=== PATIENT | female | born 2000 | race American Indian/Alaskan Native ===

== ENCOUNTER 2022-03-01 01:46 | Outpatient (CLI) | payer MEDICAID ==
[2022-03-01 03:52] LABS: Bilirubin,Urine NEG (Negative); Blood,Urine NEG (Negative); Color,Urine Yellow (Yellow); Protein,Urine <15 mg/dL mg/dL (Negative); Urobilinogen,Urine < 2.0 mg/dL (<2.0)
[2022-03-01 03:53] LABS: Bacteria,Urine 1+ /HPF (Negative); Mucus,Urine FEW /HPF; RBC,Urine < 1.0 /HPF (0.0-6.0)
[2022-03-01 04:07] VITALS: BP 124/60
[2022-03-01] MEDS ORDERED: LACTATED RINGERS 1,000 ML IV ONE (04:14)
== END 2022-03-01 05:30 | disposition home or self-care (01) ==
LOC: TRG 01:46 → APU 01:49 → TRG 05:30
PROVIDERS: ATTEND Obstetrics & Gynecology
DX: O26.893 Other specified pregnancy related conditions, third trimester (principal); R10.9 Unspecified abdominal pain; Z3A.30 30 weeks gestation of pregnancy
CPT/HCPCS: 59025; 81001; 96360; J7120

== ENCOUNTER 2022-04-28 12:29 | Inpatient (IN) | payer MEDICAID ==
[2022-04-28] MEDS ORDERED: AMPICILLIN/NS 2 GM/100 ML 2 GM/100 ML BAG IV ONE (12:56)
[2022-04-28] MEDS ORDERED: BUTORPHANOL 2 MG/1 ML INJ IV PRN ×2 (12:56)
[2022-04-28] MEDS ORDERED: CARBOPROST TROMETHAMINE 250 MCG/1 ML INJ IM PRN (12:56)
[2022-04-28] MEDS ORDERED: TERBUTALINE 1 MG/1 ML INJ SUB-Q PRN (12:56)
[2022-04-28] MEDS ORDERED: ACETAMINOPHEN 325 MG TAB PO PRN (12:56)
[2022-04-28] MEDS ORDERED: LIDOCAINE (2%) 20 MG/1 ML VIAL 20 ML MDV INFILTRATI ONE ×2 (12:56→18:16)
[2022-04-28] MEDS ORDERED: LOPERAMIDE 2 MG CAP PO PRN (12:56)
[2022-04-28] MEDS ORDERED: fentaNYL 100 MCG/2 ML INJ IV PRN (12:56)
[2022-04-28] MEDS ORDERED: OXYTOCIN 10 UNIT/1 ML INJ IM PRN (12:56)
[2022-04-28] MEDS ORDERED: METHYLERGONOVINE MALEATE 0.2 MG/ML VIAL IM PRN (12:56)
[2022-04-28] MEDS ORDERED: miSOPROStol 200 MCG TAB PR PRN (12:56)
[2022-04-28] MEDS ORDERED: ePHEDrine SULFATE 50 MG/1 ML INJ IV PRN (12:56)
[2022-04-28] MEDS ORDERED: NalbUPHINE 10 MG/1 ML INJ IV PRN (12:56)
[2022-04-28] MEDS ORDERED: MINERAL OIL 30 ML ORAL LIQD PO PRN ×2 (12:56→14:34)
[2022-04-28] MEDS ORDERED: ONDANSETRON 4 MG/2 ML INJ IV PRN (12:56)
[2022-04-28] MEDS ORDERED: LACTATED RINGERS 1,000 ML IV SCH (13:00)
[2022-04-28] MEDS ORDERED: OXYTOCIN DRIP 30 UNITS/500 ML BAG IV SCH ×2 (13:00)
[2022-04-28 14:28] LABS: Hematocrit 39.7 % (30.3-42.9); Mean Corpuscular HGB Conc 33 % (30-34); Mean Corpuscular Volume 87 fl (79-97); Platelet Count 202 K/mm3 (140-440); Red Blood Count 4.58 M/mm3 (3.65-5.03); Red Cell Distribution Width 14.2 % (13.2-15.2)
[2022-04-28] MEDS ORDERED: NALOXONE 0.4 MG/1 ML INJ IV PRN (14:34)
--- NOTE | 2022-04-28 14:46 | History and Physical Report ---
History of Present Illness Date of examination: 04/28/22 Date of admission: 04/28/22 12:30 Chief complaint: Intense Labor Pains History of present illness: Care at [facility]; [place] [facility] [place] and Maternal Obesity; course complicated by a UTI (treated with Macrobid). Past History Past Medical History: no pertinent history Past Surgical History: D&C (EAB) Family/Genetic History: none Social history: no significant social history, single - Obstetrical History Expected Date of Delivery: 05/07/22 Actual Gestation: 38 Week(s) 5 Day(s) : 2 Induced : 1 Medications and Allergies Allergies Allergy/AdvReac Type Severity Reaction Status Date / Time apple Allergy Nausea Verified 04/28/22 12:56 onion Allergy Nausea Verified 04/28/22 12:55 Active Meds: Active Medications Acetaminophen (Acetaminophen 325 Mg Tab) 650 mg PO Q4H PRN PRN Reason: Pain, Mild (1-3) Butorphanol Tartrate (Butorphanol 2 Mg/1 Ml Inj) 1 mg IV Q2H PRN PRN Reason: Pain, Moderate(4-6) LABOR PAIN Butorphanol Tartrate (Butorphanol 2 Mg/1 Ml Inj) 2 mg IV Q2H PRN PRN Reason: Pain , Severe (7-10) Last Admin: 04/28/22 13:53 Dose: 2 mg Carboprost Tromethamine (Carboprost Tromethamine 250 Mcg/1 Ml Inj) 250 mcg IM ONCE PRN PRN Reason: Uterine Bleeding Ephedrine Sulfate (Ephedrine Sulfate 50 Mg/1 Ml Inj) 10 mg IV Q2M PRN PRN Reason: Hypotension Fentanyl (Fentanyl 100 Mcg/2 Ml Inj) 100 mcg IV Q2H PRN PRN Reason: Pain,Severe (7-10) LABOR PAIN Oxytocin/Sodium Chloride (Pitocin/Ns 30 Unit/500ml) 30 units in 500 mls @ 2 mls/hr IV TITR GREGORIO; Protocol Lactated Ringer's (Lactated Ringers) 1,000 mls @ 125 mls/hr IV DIRECT GREGORIO Oxytocin/Sodium Chloride (Pitocin/Ns 30 Unit/500ml) 30 units in 500 mls @ 40 mls/hr IV TITR GREGORIO; Protocol Loperamide HCl (Loperamide 2 Mg Cap) 2 mg PO ONCE PRN PRN Reason: give with Hemabate Methylergonovine Maleate (Methylergonovine Maleate 0.2 Mg/Ml Vial) 0.2 mg IM ONCE PRN PRN Reason: Uterine Bleeding Mineral Oil (Mineral Oil 30 Ml Oral Liqd) 30 ml PO QHS PRN PRN Reason: Constipation Mineral Oil (Mineral Oil 30 Ml Oral Liqd) 30 ml PO QHS PRN PRN Reason: Constipation Misoprostol (Misoprostol 200 Mcg Tab) 800 mcg VA ONCE PRN PRN Reason: Uterine Bleeding Nalbuphine HCl (Nalbuphine 10 Mg/1 Ml Inj) 10 mg IV Q2H PRN PRN Reason: Pain, Moderate (4-6) Naloxone HCl (Naloxone 0.4 Mg/1 Ml Inj) 0.1 mg IV Q2MIN PRN PRN Reason: Res Rate </= 8 or 02 SAT < 92% Ondansetron HCl (Ondansetron 4 Mg/2 Ml Inj) 4 mg IV Q8H PRN PRN Reason: Nausea And Vomiting Last Admin: 04/28/22 13:53 Dose: 4 mg Oxytocin (Oxytocin 10 Unit/1 Ml Inj) 10 unit IM ONCE PRN PRN Reason: Uterine Bleeding Terbutaline Sulfate (Terbutaline 1 Mg/1 Ml Inj) 0.25 mg SUB-Q ONCE PRN PRN Reason: Hyperstimulation/Hypertonicity Review of Systems All systems: negative - Vital Signs Vital signs: Vital Signs Pulse BP 100 H 119/73 04/28/22 12:31 04/28/22 12:31 Temp Pulse Resp BP Pulse Ox 98.5 F 76 16 119/73 97 04/28/22 14:25 04/28/22 14:40 04/28/22 14:25 04/28/22 14:25 04/28/22 14:40 - Physical Exam Breasts: Positive: normal Cardiovascular: Regular rate Lungs: Positive: Clear to auscultation, Normal air movement Abdomen: Positive: normal appearance, soft, normal bowel sounds Genitourinary (Female): Positive: normal external genitalia, normal perenium Vagina: Positive: normal moisture Uterus: Positive: enlarged Anus/Rectum: Positive: normal perianal skin Extremities: Positive: normal - Obstetrical FHR: category 1 Uterine Contraction Monitor Mode: External Cervical Dilatation: 3 (VTX; Intact) Cervical Effacement Percentage: 90 station: -2 Uterine Contraction Pattern: Irregular Uterine Tone Measurement Phase: Resting Uterine Contraction Intensity: Moderate Results Result Diagrams: 04/28/22 13:20 Abnormal lab results 04/28/22 Range/Units 13:20 WBC 12.3 H (4.5-11.0) K/mm3 All other labs normal. Assessment and Plan A: IUP @ 38 5/7 Weeks Category I Tracing Early Labor Maternal Obesity GBS Negative P: Admit to L&D Per Routine Orders Pitocin Augmentation
[2022-04-28] MEDS ORDERED: AMPICILLIN/NS 1 GM/50 ML 1 GM/50 ML BAG IV SCH (17:00)
[2022-04-28] MEDS ORDERED: oxyCODONE /ACETAMINOPHEN 5-325MG TAB PO PRN (18:42)
[2022-04-28] MEDS ORDERED: HYDROCORTISONE 25 MG RECTAL SUPP PR PRN (18:42)
[2022-04-28] MEDS ORDERED: diphenhydrAMINE 25 MG CAP PO PRN (18:42)
[2022-04-28] MEDS ORDERED: PROMETHAZINE 25 MG TAB PO PRN (18:42)
[2022-04-28] MEDS ORDERED: PROMETHAZINE 25 MG RECT SUPP PR PRN (18:42)
[2022-04-28] MEDS ORDERED: HYDROcodone/ACETAMINOPHEN 5-325 MG TAB PO PRN (18:42)
[2022-04-28] MEDS ORDERED: LANOLIN/ZINC/DIMETHICONE (LANSINOH) 7 GM TP PRN (18:42)
[2022-04-28] MEDS ORDERED: WITCH HAZEL/ GLYCERIN PAD TP PRN (18:42)
--- NOTE | 2022-04-28 18:48 | Procedure Note ---
OB Delivery Note - Delivery Date of Delivery: 04/28/22 Surgeon: SOLEDAD CARREON Estimated blood loss: 300cc - Vaginal Delivery presentation: vertex Delivery position: OA Delivery induction: none Delivery monitor: external FHT, external uterine Route of delivery: Delivery placenta: spontaneous Delivery cord: 3 umbilical vessels Episiotomy: none Delivery laceration: 2nd degree Delivery repair: vicryl Anesthesia: local Delivery comments: To patient room for patient . WIth two maternal pushes delivery of head in MATILDE position. Remainder of delivered over intact perineum. Placenta delivered intact. 2nd degree lac noted and repaired with 3-0 vicryl. Hemostasis achieved. Patient and remain in delivery room in stable c ondition. - A at 1 minute: 9 at 5 minutes: 9 (2990g) Infant Gender: Male
[2022-04-28] MEDS: IBUPROFEN 800 MG TAB PO SCH (22:08)
[2022-04-29] MEDS: IBUPROFEN 800 MG TAB PO SCH ×4 (01:10→23:39)
[2022-04-29] MEDS: PRENATAL VIT27-FE FUMARATE-FOLIC ACID VIT TAB PO SCH (10:58)
[2022-04-29 11:01] LABS: Hematocrit 34.4 % (30.3-42.9); Hemoglobin 11.2 gm/dl (10.1-14.3)
--- NOTE | 2022-04-29 19:02 | Discharge Summary ---
Providers - Providers Date of Admission: 04/28/22 12:30 Date of discharge: 04/29/22 Attending physician: JOSE ARMANDO MORAN Primary care physician: JOSE ARMANDO MORAN Hospitalization Reason for admission: active labor Delivery: Episiotomy: none Laceration: 2nd degree Other procedures: none complications: none Discharge diagnosis: IUP at term delivered baby: male Condition at discharge: Good Disposition: 01 HOME / SELF CARE / HOMELESS Plan - Discharge Medications Prescriptions: Ibuprofen [Motrin 800 MG tab] 800 mg PO Q8HR #30 tablet - Provider Discharge Summary Activity: no sex for 6 weeks, no heavy lifting 4 weeks, no strenuous exercise Diet: routine Instructions: routine Additional instructions: [] Smoking cessation referral if applicable(refer to patient education folder for contact #) [] Refer to [facility]'s [facility] Booklet Call your doctor immediately for: * Fever > 100.5 * Heavy vaginal bleeding ( >1 pad per hour) * Severe persistent headache * Shortness of breath * Reddened, hot, painful area to leg or breast * Drainage or odor from incision. * Keep incision clean and dry at all times and follow doctor's instructions regarding bathing/showering - Follow up plan Follow up: JOSE ARMANDO MORAN MD [Primary Care Provider] - 6 Weeks
[2022-04-30] MEDS: IBUPROFEN 800 MG TAB PO SCH ×2 (05:40→09:59)
[2022-04-30 08:58] VITALS: BP 108/58
[2022-04-30] MEDS: PRENATAL VIT27-FE FUMARATE-FOLIC ACID VIT TAB PO SCH (09:59)
== END 2022-04-30 12:25 | disposition home or self-care (01) | DRG 775 ==
LOC: TRG 12:29 → LD 12:30 → TRG 14:23 → OB 21:56
PROVIDERS: ADMIT Obstetrics & Gynecology; ATTEND Obstetrics & Gynecology
PROC: 10E0XZZ Delivery of Products of Conception, External Approach (ICD-10-PCS; principal; 2022-04-28)
PROC: 0KQM0ZZ Repair Perineum Muscle, Open Approach (ICD-10-PCS; 2022-04-28)
DX: O99.214 Obesity complicating childbirth (principal); Z37.0 Single live birth; Z3A.38 38 weeks gestation of pregnancy; O70.1 Second degree perineal laceration during delivery; Z20.822 Contact with and (suspected) exposure to COVID-19; Z91.018 Allergy to other foods
CPT/HCPCS: 36415; 85014; 85018; 85027; 86762; 86850; 86900; 86901; G0378; J0290; J0595; J2405; J2590; U0003